=== PATIENT | male | born 1995 | race Caucasian/White ===

== ENCOUNTER 2016-10-22 13:14 | Emergency (ER) | payer BC ==
[2016-10-22 13:20] VITALS: BP 145/69
--- NOTE | 2016-11-16 09:53 | UC ---
Branden Serrano Rebecca, scribed for Vandana De Guzman MD on 10/22/16 at 1458 . Ear Complaint HPI - HPI Summary HPI Summary: Pt is a 20 y/o M who presents to [facility] c/o R ear pain. Pain began 2 days ago and has been constant since onset. Pain is currently moderate, ranked 4/10 and characterized as an ache. Sx aggravated and alleviated by nothing. Denies rash, cough or any other complaints. Has used Q-Tips in his ears in the past week. Was in [place] last week during which he was swimming in the ocean often. PMHx ear infections. - History of Current Complaint Chief Complaint: [facility] Stated Complaint: EAR PAIN Time Seen by Provider: 10/22/16 14:50 Hx Obtained From: Patient Onset/Duration: Lasting Days - 2 days, Still Present Severity Currently: Moderate Pain Intensity: 4 Pain Scale Used: 0-10 Numeric Aggravating Factors: Nothing Alleviating Factors: Nothing - Allergies/Home Medications Allergies/Adverse Reactions: Allergies Allergy/AdvReac Type Severity Reaction Status Date / Time No Known Allergies Allergy Unverified 06/28/16 13:53 PMH/Surg Hx/FS Hx/Imm Hx Previously Healthy: No - Hx ear infections Endocrine History: Diabetes - Surgical History Surgical History: Yes Surgery Procedure, Year, and Place: RIGHT TIBIA WITH DEION/PINS 2009 - Family History Known Family History: Negative: Diabetes - Social History Alcohol Use: Occasionally Substance Use Type: None Smoking Status (MU): Never Smoked Tobacco Review of Systems Constitutional: Negative Skin: Negative Eyes: Negative ENT: Ear Ache - R ear Respiratory: Negative Cardiovascular: Negative Gastrointestinal: Negative Genitourinary: Negative Motor: Negative Neurovascular: Negative Musculoskeletal: Negative Neurological: Negative Psychological: Negative All Other Systems Reviewed And Are Negative: Yes Physical Exam Triage Information Reviewed: Yes Vital Signs: Initial Vital Signs Temp 99 F 10/22/16 13:17 Pulse 79 10/22/16 13:17 Resp 16 10/22/16 13:17 BP 145/69 10/22/16 13:17 Pulse Ox 100 10/22/16 13:17 Vital Signs Reviewed: Yes Eye Exam: Normal ENT Exam: Other - R EAC + red, + clear yellow drainage. TM as visible howell, not entirely visible - that which is visible intact. No post ear swelling/ redness. No meningismus. Neck exam: Normal Respiratory Exam: Normal Cardiovascular Exam: Normal Abdominal Exam: Normal Musculoskeletal Exam: Normal Neurological Exam: Normal Skin Exam: Normal - Additional Comments Appearance: Well-Nourished Eye Exam: Normal ENT Exam: Swimmer's ear in the R ear, starting in the L ear Respiratory Exam: Normal, no dyspnea, no tachypnea, normal respiratory rate, chest non-tender, Lungs clear, Normal breath sounds, No respiratory distress, No accessory muscle use Cardiovascular Exam: Normal Cardiovascular: Heart rate regular, good general skin color, good capillary refill, RRR, No Murmur, Pulses Normal - sitting up. Abdominal Exam: Normal Abdomen Description: Nontender, No Organomegaly, Soft Bowel Sounds: Present Musculoskeletal Exam: Normal Musculoskeletal: Strength Intact Neurological Exam: Normal: nonfocal, grossly intact Psychological Exam: Normal: conversing easily and appropriately Skin Exam: Normal: no visible or reported rash Ear Complaint Course/Dx - Course Course Of Treatment: Reviewed coa. Questions answered as posed. - Differential Dx/Diagnosis Provider Diagnoses: otitis externa Discharge - Discharge Plan Condition: Stable Disposition: HOME Prescriptions: Ciproflox/Dexameth OTIC.SUSP* [Ciprodex OTIC.SUSP*] 1 drop .SEE ORDER BID #1 btl Levofloxacin TAB* [Levaquin TAB*] 500 mg PO DAILY #10 tab Patient Education Materials: Otitis Externa (ED) Referrals: [facility] [Primary Care Provider] - Additional Instructions: Use sunscreen and be careful while outside in the sun. Avoid using Q-Tips in the ears and getting water in the ears. Please follow up with your primary care provider in 1-2 weeks. Seek medical attention for worse or new problems or joint pain in the meantime. The documentation as recorded by the Branden michelle Rebecca accurately reflects the service I personally performed and the decisions made by me, Vandana De Guzman MD.
== END 2016-10-22 15:07 | disposition home or self-care (01) ==
LOC: UCEAST 13:14
DX: H60.91 Unspecified otitis externa, right ear (principal); E11.9 Type 2 diabetes mellitus without complications
CPT/HCPCS: 99212; G0463

== ENCOUNTER 2018-04-01 12:52 | Emergency (ER) | payer BC ==
--- OUTSIDE RECORDS SUMMARY | 2018-04-01 12:57 | XMS REPORT | Continuity of Care Document ---
:1995 External Reference #:[id number] Author Name Dee Adams Care Team Providers Name Role Phone Chetan Young M.D. 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 Primary Care Physician Unavailable Payers Type Date Identification Numbers Payment Provider Subscriber Policy Number: [id number] NICK Kwame Monteiro PayID: [id number] [address] [address] [place] [address] Advance Directives Description No Information Available Problems Description No Information Family History Description No Information Available Social History Type Date Description Comments Sex Unknown Tobacco Use Start: Unknown Never Smoked Cigarettes ETOH Use Rare Use Of Alcohol Recreational Drug Use Never Used Drugs Allergies, Adverse Reactions, Alerts Description No Known Drug Allergies Medications Medication Date Status Form Strength Qnty SIG Indications Ordering Provider Novolog Active Solution Unknown Immunizations Description No Information Available Vital Signs Date Vital Result Comment 03/13/2018 2:34pm Weight 225.00 lb Height 73 inches 6'1" BMI (Body Mass Index) 29.7 kg/m2 BP Systolic 112 mmHg BP Diastolic 63 mmHg Heart Rate 68 /min O2 % BldC Oximetry 96 % Body Temperature 98.3 F [place] Score 8 Neck Circumference in inches 17 Pain Level 0 Results Description No Information Available Procedures Description No Information Available Encounters Description No Information Available Plan of Treatment No Information Available
[2018-04-01 13:24] VITALS: BP 138/79
--- NOTE | 2018-04-01 13:59 | UC ---
Skin Complaint HPI - HPI Summary HPI Summary: laceration(skin avulsion) right 3rd finger yesterday - History of Current Complaint Chief Complaint: UCLaceration Time Seen by Provider: 04/01/18 13:52 Stated Complaint: FINGER INJURY Hx Obtained From: Patient Onset/Duration: Sudden Onset, Lasting Days - 1 Timing: Constant Pain Intensity: 2 Pain Scale Used: 0-10 Numeric Character: Redness - healthy tissue s/p skin avulsion Aggravating Factor(s): Nothing Alleviating Factor(s): Nothing - Allergy/Home Medications Allergies/Adverse Reactions: Allergies Allergy/AdvReac Type Severity Reaction Status Date / Time No Known Allergies Allergy Verified 04/01/18 13:24 Home Medications: Home Medications Ibuprofen 400 mg PO ONCE PRN 04/01/18 [History Confirmed 04/01/18] Insulin Aspart [Novolog] 04/01/18 [History] PMH/Surg Hx/FS Hx/Imm Hx Previously Healthy: No Endocrine History: Diabetes - last HGAIC<7 - Surgical History Surgical History: Yes Surgery Procedure, Year, and Place: RIGHT TIBIA WITH DEION/PINS 2009 - Family History Known Family History: Negative: Diabetes - Social History Occupation: Unemployed Lives: With Family Alcohol Use: Weekly Substance Use Type: None Smoking Status (MU): Never Smoked Tobacco - Immunization History Most Recent Tetanus Shot: up to date Review of Systems All Other Systems Reviewed And Are Negative: Yes Constitutional: Positive: Negative Skin: Positive: Other - 3mmx6 mm skin avulsion distal right third figer Eyes: Positive: Negative ENT: Positive: Negative Respiratory: Positive: Negative Cardiovascular: Positive: Negative Gastrointestinal: Positive: Negative Genitourinary: Positive: Negative Motor: Positive: Negative Neurovascular: Positive: Negative Musculoskeletal: Positive: Negative Neurological: Positive: Negative Psychological: Positive: Negative Is Patient Immunocompromised?: No Physical Exam Triage Information Reviewed: Yes Appearance: Well-Appearing, No Pain Distress, Well-Nourished Vital Signs: Initial Vital Signs Temp 98.1 F 04/01/18 13:19 Pulse 84 04/01/18 13:19 Resp 18 04/01/18 13:19 BP 138/79 04/01/18 13:19 Pulse Ox 98 04/01/18 13:19 Vital Signs Reviewed: Yes Eye Exam: Normal Eyes: Positive: Conjunctiva Clear ENT Exam: Normal ENT: Positive: Normal ENT inspection, Hearing grossly normal. Negative: Trismus , Muffled voice, Hoarse voice Dental Exam: Normal Neck exam: Normal Neck: Positive: Supple, Nontender, No Lymphadenopathy Respiratory Exam: Normal Respiratory: Positive: Chest non-tender, No respiratory distress, No accessory muscle use Cardiovascular Exam: Normal Cardiovascular: Positive: RRR, Pulses Normal, Brisk Capillary Refill Musculoskeletal Exam: Normal Musculoskeletal: Positive: Strength Intact, ROM Intact, No Edema Neurological Exam: Normal Neurological: Positive: Alert, Muscle Tone Normal Psychological Exam: Normal Skin Exam: Other Skin: Positive: Other - 3x6mm skin avulsion right 3rd finger pad Course/Dx - Course Course Of Treatment: soap and water wash, dressing , keflex follow with pcp prn - Diagnoses Provider Diagnosis: Avulsion of skin of finger without complication Discharge - Sign-Out/Discharge Documenting (check all that apply): Patient Departure All imaging exams completed and their final reports reviewed: No Studies - Discharge Plan Condition: Stable Disposition: HOME Prescriptions: Cephalexin CAP* [Keflex CAP*] 500 mg PO QID #20 cap Patient Education Materials: Skin Avulsion (ED) Referrals: Chetan Young MD [Primary Care Provider] - If Needed - Billing Disposition and Condition Condition: STABLE Disposition: Home
== END 2018-04-01 14:07 | disposition home or self-care (01) ==
LOC: UCEAST 12:52
DX: S61.212A Laceration without foreign body of right middle finger without damage to nail, initial encounter (principal); E11.9 Type 2 diabetes mellitus without complications; Z79.4 Long term (current) use of insulin; X58.XXXA Exposure to other specified factors, initial encounter; Y92.9 Unspecified place or not applicable
CPT/HCPCS: 99212; G0463